=== PATIENT | male | born 1980 | race Caucasian/White ===

== ENCOUNTER 2024-05-08 17:50 | Emergency (ER) | payer MEDICAID, SELFPAY ==
[2024-05-08 18:13] VITALS: BP 145/88; PULSE 86; RESP 16; TEMP 37; O2SAT 97; BMI 20.5
--- NOTE | 2024-05-08 18:30 | XR_ITS ---
Examination: CT cervical spine without contrast 2-D sagittal reconstructions 2-D coronal reconstructions 3-D reconstructions. Exam date and time:May 08, 2024 1916 hrs. Indications: Patient fell today with injury to the neck, neck pain CTDI:vol (mGy) 7.32 DLP: (mGycm) 151 Technique: Multiple 2 mm axial sections of the cervical spine have been obtained. The coronal and sagittal reconstructions have been obtained. 3-D reconstructions have been obtained. Low dose protocols were performed. One or more of the following dose reduction techniques were used; automated exposure control, adjustment of the mA and/or KV according to patient size, use of iterative reconstruction technique. Findings: Axial sections demonstrate intact base of the skull. C1 exhibit satisfactory relationship to the odontoid. No acute cervical vertebral body fracture seen. Alignment posterior spinous processes satisfactory. 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
--- NOTE | 2024-05-08 18:30 | XR_ITS ---
Examination: CT brain head without contrast. 2-D sagittal coronal reconstructions Date and time of exam:December 07, 2023 1916 hrs. Comparison June 17, 2014 Indications: Patient fell today with injury to the head, laceration left side of the head with swelling and pain CTDI: vol (mGy):47.7 DLP: (mGycm):945 Technique: Multiple CT axial sections of the brain have been obtained, 5 mm slice thickness. Contrast has not been administered. 2-D sagittal, coronal reconstructions have been obtained Low dose protocols were performed. One or more of the following dose reduction techniques were used; automated exposure control, adjustment of the mA and/or KV according to patient size, use of iterative reconstruction technique. Findings: No significant ventricular enlargement. Intra-axial or extra-axial hemorrhage density is not seen. No mass effect or midline shift Basal cisterns are not remarkable. Fourth ventricle is midline. Cranial vault intact. Impression: Negative for acute hemorrhage, mass effect or midline shift
--- NOTE | 2024-05-08 18:30 | PD.EDRME ---
Rapid Medical Screening Exam [facility] Arrival date/time: 05/08/24 17:50 44M with no history of psych presents to ED with head lac/pain after he fell off a roof about 10 feet high and hit his head. Patient denies other symptoms. Patient has not had a tetanus shot in the last 5 years. Patient denies SI/HI. Chief Complaint: Fall Vital signs: Vital Signs Temperature 98.6 F 05/08/24 18:13 Pulse Rate 86 05/08/24 18:13 Respiratory Rate 16 05/08/24 18:13 Blood Pressure 145/88 H 05/08/24 18:13 Pulse Oximetry (%) 97 05/08/24 18:13 Oxygen Delivery Method Room Air 05/08/24 18:13
[2024-05-08] MEDS: DIPHTH,PERTUSS(ACELL),TET VAC 0.5 ML VIAL IMi (18:45)
[2024-05-08 20:18] VITALS: BP 154/97; PULSE 68; RESP 16; TEMP 36.7; O2SAT 96
--- NOTE | 2024-05-08 21:08 | PD.EDFALL ---
ED Fall Injury RME/HPI General Chief Complaint: Fall Stated Complaint: Fall from a roof Arrival date/time: 05/08/24 17:50 Limitations: no limitations RME / HPI RME / HPI Narrative: DR. MIKE MAIN ED EVALUATION: 44 year old male presents to the Emergency Department with complaint of a head laceration with associated pain after falling off a roof that was about 10 feet high. Symptoms are moderate. Denies tetanus shot in last 5 years. Related Data Home Medications ?Medication ?Instructions ?Recorded ?Confirmed No Known Home Medications 05/08/24 05/08/24 Allergies Allergy/AdvReac Type Severity Reaction Status Date / Time No Known Allergies Allergy Verified 08/17/18 10:18 Review of Systems Review of Systems Systems Reviewed: All systems reviewed, normal except as documented Past Medical History Past Medical History OTHER HISTORY: Positive Falls (fell off of roof due to trip and fall) Social History SMOKING STATUS: Never smoker SUBSTANCE USE: does not use ALCOHOL: Never ED Exam General Limitations: Present no limitations General appearance: Present alert and in no apparent distress Eye Eye exam: Present normal appearance, PERRL and EOMI ENT ENT exam: Present normal exam, normal oropharynx and mucous membranes moist Neck Neck exam: Present normal inspection, full ROM and trachea midline Chest Chest inspection: Present normal inspection and symmetric chest wall rise Respiratory Respiratory exam: Present normal lung sounds bilaterally Cardiovascular Cardiovascular exam: Present regular rate, normal rhythm and normal heart sounds Abdominal Exam Abdominal exam: Present soft and normal bowel sounds Extremities Exam Extremities exam: Present normal inspection and full ROM Back Exam Back exam: Present normal inspection and full ROM Neurological Exam Neurological exam: Present alert, oriented X3 and CN II-XII intact Psychiatric Psychiatric exam: Present normal affect and normal mood Skin Skin exam: Present warm, dry, intact and normal color Course Quality Measures none Orders Category Date Time Status Set Up Suture Tray STAT Care 05/08/24 18:30 Active Wound Care NOW Care 05/08/24 18:[address] cervical spine wo con Stat Exams 05/08/24 18:[address] head/brain wo con Stat Exams 05/08/24 18:30 Completed Tet,Diphth,Pertuss(Acell)-Tdap [Boostrix Vacc] Med 05/08/24 18:30 Discontinued 0.5 ml IMI .ONCE ONE Vital Signs Vital signs: Vital Signs Temperature 98.6 F 05/08/24 18:13 Pulse Rate 86 05/08/24 18:13 Respiratory Rate 16 05/08/24 18:13 Blood Pressure 145/88 H 05/08/24 18:13 Pulse Oximetry (%) 97 05/08/24 18:13 Oxygen Delivery Method Room Air 05/08/24 18:13 Fall MDM Narrative MDM Narrative:: I, Olive Kolby, am scribing for and in the presence of Dr. Mike. Patient data External records reviewed:: [facility] previous records (Reviewed last ED visit dated 08/17/18, discharged with the following: Acute pharyngitis.) Clinical information provided by:: patient Social determinants that could affect healthcare access:: none Patient has the following chronic illnesses:: No known PMHx, surgeries, daily medications, or allergies. How is presenting disease/condition affected by chronic disease/condition?: no chronic disease Evaluation data The following diagnostics were reviewed and interpreted by me:: radiology exam(s) Lab and/or radiology exams considered but not ordered:: none Interpretation Summary: Procedure(s): CT head/brain wo [facility] Accession Number(s): [id number] cc: Kody Whatley MD; NO PRIMARY/FAMILY,PHYSICIAN; Scott Bearden PA-C~ Examination: CT brain head without contrast. 2-D sagittal coronal reconstructions Date and time of exam:December 07, 2023 1916 hrs. Comparison June 17, 2014 Indications: Patient fell today with injury to the head, laceration left side of the head with swelling and pain CTDI: vol (mGy):47.7 DLP: (mGycm):945 Technique: Multiple CT axial sections of the brain have been obtained, 5 mm slice thickness. Contrast has not been administered. 2-D sagittal, coronal reconstructions have been obtained Low dose protocols were performed. One or more of the following dose reduction techniques were used; automated exposure control, adjustment of the mA and/or KV according to patient size, use of iterative reconstruction technique. Findings: No significant ventricular enlargement. Intra-axial or extra-axial hemorrhage density is not seen. No mass effect or midline shift Basal cisterns are not remarkable. Fourth ventricle is midline. Cranial vault intact. Impression: Negative for acute hemorrhage, mass effect or midline shift Dictated By: Kody Whatley MD Procedure(s): CT cervical spine wo [facility] Accession Number(s): [id number] cc: Kody Whatley MD; NO PRIMARY/FAMILY,PHYSICIAN; Scott Bearden PA-C~ Examination: CT cervical spine without contrast 2-D sagittal reconstructions 2-D coronal reconstructions 3-D reconstructions. Exam date and time:May 08, 2024 1916 hrs. Indications: Patient fell today with injury to the neck, neck pain CTDI:vol (mGy) 7.32 DLP: (mGycm) 151 Technique: Multiple 2 mm axial sections of the cervical spine have been obtained. The coronal and sagittal reconstructions have been obtained. 3-D reconstructions have been obtained. Low dose protocols were performed. One or more of the following dose reduction techniques were used; automated exposure control, adjustment of the mA and/or KV according to patient size, use of iterative reconstruction technique. Findings: Axial sections demonstrate intact base of the skull. C1 exhibit satisfactory relationship to the odontoid. No acute cervical vertebral body fracture seen. Alignment posterior spinous processes satisfactory. 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 Dictated By: Kody Whatley MD Medications / Prescriptions Medications or Prescriptions considered but not ordered:: none Medication administrations:: Medication Administration History Discontinued Medications Diphtheria/Tetanus/Acell Pertussis (Diphth,Pertuss(Acell),Tet Vac 0.5 Ml Vial) 0.5 ml IMi .ONCE ONE Stop: 05/08/24 18:31 Last Admin: 05/08/24 18:45 Dose: 0.5 ml Documented By: MP see above Consultations Consultation(s) initiated? (list below): No Admission Indicated Admission indicated?: not indicated Admission Request Was there a request for admission?: No Disposition Plan Disposition Plan: Discharge Discharge Attestation Discharge Attestation: The patient and all family members were given an opportunity to ask questions and understood the discharge instructions. Discharge instructions specifically effects, indications for sooner follow up or return to the emergency department, and the expected course of current diagnosis. Patient condition: Stable Discharge Plan Prescriptions/Referrals Prescriptions/Med Rec: No Action No Known Home Medications Referrals: No Primary/Family,Physician [Primary Care Provider] - In 1 week Patient/Caregiver Discharge Instructions Print Language: Arabic
--- NOTE | 2024-05-08 22:42 | PD.EDFALL ---
ED Fall Injury RME/HPI General Chief Complaint: Fall Stated Complaint: Fall from a roof Time Seen by Provider: 05/08/24 22:44 Arrival date/time: 05/08/24 17:50 RME / HPI RME / HPI Narrative: 44-year-old male patient was brought in for evaluation regarding fall. Patient apparently fell off the roof about 10 feet high sustaining 4 cm laceration to the left forehead, and 1 cm abrasion to the left eyebrow. Patient denies any neck pain denies any LOC denies any hip pain denies any back pain denies any other injury patient is ambulatory. No medication was taken prior to arrival. Related Data Previous Rx's ?Medication ?Instructions ?Recorded ibuprofen 800 mg tablet 800 mg PO TID PRN pain #20 tabs 05/08/24 Allergies Allergy/AdvReac Type Severity Reaction Status Date / Time No Known Allergies Allergy Verified 08/17/18 10:18 Review of Systems Review of Systems Narrative Review of Systems: Review of system reviewed and within normal limits except mentioned in HPI ED Exam Narrative Physical exam: VITAL SIGNS: Reviewed. GENERAL APPEARANCE: Alert and interactive, follows commands, no acute distress, HEAD AND FACE: 4 cm laceration to the left forehead, and 1 cm laceration to the left eyebrow, ENT: PERRL, pink conjunctivitis, eyelid no trauma, Mucous membrane moist. Full range of motion of extraocular muscle with no entrapment NECK: Supple, nontender, no nuchal rigidity. CHEST: No tenderness, no crepitus, no paradoxical movement, no retractions. LUNGS: Clear, well ventilated, symmetric, no rales, no wheezing, no ronchi, no stridor, good breath sounds bilaterally. HEART: Regular rate, regular rhythm, no murmur, no gallops. ABDOMEN: Soft, positive bowel sounds, nondistended, no guarding, nontender, no rebound, no masses, RECTAL: Deferred. GENITAL: Deferred. NEUROLOGICAL: Gross motor function intact sensory function intact, Appropriate for age. MUSCULOSKELETAL: low back nontender, full range of motion. EXTREMITIES: Nontender, full range of motion. SKIN: Color pink, dry, no rash, no lacerations, no abrasions, no contusions. LYMPHATICS: Deferred. Course Quality Measures none Orders Category Date Time Status Set Up Suture Tray STAT Care 05/08/24 18:30 Active Wound Care NOW Care 05/08/24 18:[address] cervical spine wo con Stat Exams 05/08/24 18:[address] head/brain wo con Stat Exams 05/08/24 18:30 Completed Ibuprofen Tab [Motrin Tab] Med 05/08/24 22:44 Discontinued 800 mg PO X1 ONE Tet,Diphth,Pertuss(Acell)-Tdap [Boostrix Vacc] Med 05/08/24 18:30 Discontinued 0.5 ml IMI .ONCE ONE Vital Signs Vital signs: Vital Signs Temperature 98.6 F 05/08/24 18:13 Pulse Rate 86 05/08/24 18:13 Respiratory Rate 16 05/08/24 18:13 Blood Pressure 145/88 H 05/08/24 18:13 Pulse Oximetry (%) 97 05/08/24 18:13 Oxygen Delivery Method Room Air 05/08/24 18:13 Procedures -ED Laceration Laceration 1: Site: face Side (If applicable): left Size (cm): 4 Description: linear Depth: simple, single layer Local Anesthetic: lidocaine 1% Amount of anesthesia used (mL): 5 Pre-repair: wound explored and irrigated extensively Skin layer closed with: nylon Size (cm): 5-0 Number of sutures: 6 Technique: simple, interrupted Laceration 2: Site: other (Left eyebrow) Side (If applicable): left Size (cm): 1 Description: linear Depth: simple, single layer Local Anesthetic: lidocaine 1% Amount of anesthesia used (mL): 2 Pre-repair: wound explored and irrigated extensively Skin layer closed with: nylon Size (cm): 5-0 Number of sutures: 1 Technique: simple, interrupted Fall MDM Narrative MDM Narrative:: CT scan of the head came back unremarkable CT scan of the neck came back unremarkable. Repair and suturing was done by me see procedure notes. Patient received Boostrix in the ED. Patient data External records reviewed:: None Clinical information provided by:: patient Social determinants that could affect healthcare access:: none Patient has the following chronic illnesses:: None How is presenting disease/condition affected by chronic disease/condition?: no chronic disease Evaluation data The following diagnostics were reviewed and interpreted by me:: radiology exam(s) Lab and/or radiology exams considered but not ordered:: None Interpretation Summary: CT scan of the head came back unremarkable CT scan of the came back unremarkable results discussed with the patient. Medications / Prescriptions Medications or Prescriptions considered but not ordered:: None Medication administrations:: Medication Administration History Discontinued Medications Diphtheria/Tetanus/Acell Pertussis (Diphth,Pertuss(Acell),Tet Vac 0.5 Ml Vial) 0.5 ml IMi .ONCE ONE Stop: 05/08/24 18:31 Last Admin: 05/08/24 18:45 Dose: 0.5 ml Documented By: LUIS ANGEL Ibuprofen (Ibuprofen Tab 400 Mg Tablet) 800 mg PO X1 ONE Stop: 05/08/24 22:45 Motrin and Boostrix Consultations Consultation(s) initiated? (list below): No Diagnosis Fall Differential Diagnosis: other (Forehead laceration eyebrow laceration status post fall) Most likely diagnosis given after review of the tests above:: Forehead laceration, eyebrow laceration status post fall Admission Indicated Admission indicated?: not indicated Admission Request Was there a request for admission?: No Disposition Plan Disposition Plan: Discharge Discharge Attestation Discharge Attestation: The patient was given an opportunity to ask questions and understood the discharge instructions. Discharge instructions specifically effects, indications for sooner follow up or return to the emergency department, and the expected course of current diagnosis. Patient condition: Stable Discharge Plan Plan Patient Disposition: HOME (Self Care) Disposition Comment: Stable Prescriptions/Referrals Prescriptions/Med Rec: New ibuprofen 800 mg tablet 800 mg PO TID PRN (Reason: pain) Qty: 20 0RF Referrals: No Primary/Family,Physician [Primary Care Provider] - In 1 week Problem List Clinical Impression: Forehead laceration, Eyebrow laceration, Fall Patient/Caregiver Discharge Instructions Discharge Activity: activity as tolerated Education Materials: ED Head Injury (Adult) Additional Instructions: Thank you for the opportunity for serving you today. You are stable for discharged . You are advised to: Follow-up with your PCP in 1 to 2 days Return to ED for worsening of symptoms Increase oral fluids Take medication as prescribed For removal of sutures in 7 days Daily dressing with Neosporin as needed Print Language: Macedonian Stand Alone Forms: Deepika Award Info., Patient Portal Info Letter COURTNEY/DEBBIE Supervising Physician COURTNEY/DEBBIE Supervising Physician: MD Mohinder
[2024-05-08 22:45] VITALS: BP 136/84; PULSE 67; RESP 16; O2SAT 98
[2024-05-08 22:47] VITALS: BP 136/84; PULSE 65; RESP 18; TEMP 36.6; O2SAT 97
[2024-05-08 23:00] VITALS: BP 148/90; PULSE 62; RESP 17; O2SAT 97
[2024-05-08] MEDS: IBUPROFEN TAB 400 MG TABLET 800 MG PO (23:32)
== END 2024-05-08 23:48 | disposition home or self-care (01) ==
PROVIDERS: Emergency Provider Emergency Medicine
DX: S01.81XA Laceration without foreign body of other part of head, initial encounter (principal); S01.112A Laceration without foreign body of left eyelid and periocular area, initial encounter; S19.9XXA Unspecified injury of neck, initial encounter; W13.2XXA Fall from, out of or through roof, initial encounter; Z23 Encounter for immunization
CPT/HCPCS: 12013; 70450; 72125; 90471; 90715; 99284; A9270